=== PATIENT | female | born 1990 | race African-American/Black ===

== ENCOUNTER 2019-09-06 16:58 | Emergency (ER) | payer OTHER ==
[~2019-09-06] VITALS: Ht 167.6 cm; Wt 150.1 kg
[2019-09-06 17:22] VITALS: BP 145/85; Ht 167.6 cm; Wt 150.1 kg
== END 2019-09-06 17:30 | disposition home or self-care (01) ==
LOC: ED 16:58
DX: G56.00 Carpal tunnel syndrome, unspecified upper limb (principal)